=== PATIENT | female | born 1965 | race Caucasian/White ===

== ENCOUNTER → 2020-05-09 | Outpatient (CLI) | payer MEDICARE, OTHER | LOC: LAB 13:42 | DX: D89.89 Other specified disorders involving the immune mechanism, not elsewhere classified (principal); R76.8 Other specified abnormal immunological findings in serum; M25.50 Pain in unspecified joint | CPT/HCPCS: 36415 ==

== ENCOUNTER → 2020-06-13 | Outpatient (CLI) | payer MEDICARE, OTHER | LOC: EXRD 09:38 | DX: M17.12 Unilateral primary osteoarthritis, left knee (principal) | CPT/HCPCS: 73560 ==